=== PATIENT | male | born 1970 | race Caucasian/White ===

== ENCOUNTER → 2018-05-05 | Outpatient (CLI) | payer BC ==
--- NOTE | 2018-05-05 09:46 | Diagnostic Imaging Report ---
PROCEDURE: US Gallbladder. TECHNIQUE: Multiple real-time grayscale images were obtained over the right upper quadrant in various projections. INDICATION: Right upper quadrant abdominal discomfort. FINDINGS: The liver is normal in size at 16.0 cm. There is some generalized hepatic parenchymal heterogeneity but no discrete mass is identified. This may be owing to hepatic steatosis. There is an area of hypoechogenicity in the right lobe of the liver, likely representing fatty sparing. The gallbladder is without stones or sludge. No wall thickening or biliary ductal dilatation is identified. The partially visualized pancreas is unremarkable. The right kidney is unremarkable. No calculi or hydronephrosis is seen. There is no ascites. IMPRESSION: Findings more suggestive of hepatic steatosis. No discrete liver mass or biliary ductal dilatation is identified. There are no findings to suggest cholelithiasis or acute cholecystitis. Dictated by: Dictated on workstation # [id number]
== END ==
LOC: RAD 08:03
PROVIDERS: ATTEND Family Medicine
DX: R10.11 Right upper quadrant pain (principal)
CPT/HCPCS: 76705

== ENCOUNTER 2018-05-27 10:45 | Outpatient (CLI) | payer BC ==
[~2018-05-27] VITALS: Ht 172.7 cm; Wt 90.7 kg
== END 2018-05-27 13:21 | disposition home or self-care (01) ==
LOC: PREOP 10:45
PROVIDERS: ATTEND Internal Medicine
DX: Z01.818 Encounter for other preprocedural examination (principal)

== ENCOUNTER 2018-05-30 07:04 | Day surgery (SDC) | payer BC ==
--- NOTE | 2018-05-09 17:02 | HISTORY AND PHYSICAL ---
DATE OF SERVICE: COLONOSCOPY HISTORY AND PHYSICAL HISTORY OF PRESENT ILLNESS: The patient is a 48-year-old white male, referred by Dr. Dent for screening colonoscopy. He is seemed to be of higher than average risk as he has an uncle diagnosed with colon cancer in his 60s, multiple women in his family have had breast cancer, both mother and sister premenopausal at the age of 48. Father was diagnosed with prostate cancer at the age of 63. He has one other uncle with colon cancer, unknown age, and is not aware of any first-degree relatives with colon cancer. He reports that he feels well. He has had no bowel habit change and has had no melena or bright red blood per rectum. He has had some intermittent episodes of right upper quadrant abdominal pain, nonradiating associated with nausea and aggravated by fatty foods for the past several months. There is reportedly a strong family history for cholecystitis with both of his parents requiring cholecystectomy, per his report. He has not experienced any weight loss. PAST MEDICAL HISTORY: Significant for hemochromatosis, treated with phlebotomy. He has an upcoming hematologic panel including a ferritin level and other iron studies with Dr. Dent. I performed one other colonoscopy on him in 2010, which was normal including the distal 10 cm of terminal ileum. FAMILY HISTORY: As outlined in the H and P. SOCIAL HISTORY: He is with no past smoking history and rare alcohol intake. ADDITIONAL FAMILY HISTORY: His father had prostate cancer at age of 63. He of a stroke at the age of 76 years of age. Mother had atrial fibrillation. He is not aware of any other family history of known hemochromatosis. REVIEW OF SYSTEMS: GI: As noted in the HPI. CARDUIVASCULAR: He denies chest pain, dyspnea on exertion, syncope, presyncope or palpitations. PULMONARY: He has had no cough or shortness of breath and denies any problems with asthma. PHYSICAL EXAMINATION: GENERAL: Reveals a pleasant white male, in no acute distress. VITAL SIGNS: Weight is 209.8 pounds, which is up 26 pounds from his last office visit in 2010; blood pressure 130/80, heart rate 72 and regular. HEENT: Sclerae nonicteric. Oral cavity reveals Mallampati class 2 pharyngeal configuration. NECK: No JVD, adenopathy or bruits. CHEST: Clear to auscultation. CARDIOVASCULAR: Regular rate and rhythm without murmur, S3 or S4. ABDOMEN: Soft, supple without mass, organomegaly or tenderness. EXTREMITIES: No cyanosis, clubbing or edema. ASSESSMENT AND PLAN: 1. The patient was set up for screening colonoscopy on 05/30/2018. Prep instructions and Suprep kit were given and questions were answered. 2. Right upper quadrant abdominal pain with features most suggestive of cholecystitis. If the sonogram is normal, we did discuss acalculous cholecystitis and also discussed the possibility of peptic ulcer disease. I advised to continue to abstain from aspirin and nonsteroidal medication which he usually does not consume. If symptoms persist despite normal sonography, I would consider HIDA scan with CCK and/or my consideration for EGD evaluation if there is no evidence to suggest cholecystitis. I thank you for the referral of this pleasant gentleman. Job ID: [id number] DocumentID: [id number] Dictated Date: 05/01/2018 15:19:54 [employer] Date: 05/01/2018 16:43:33 Dictated By: JEREL VASQUEZ MD MTDD
[~2018-05-30] VITALS: Ht 172.7 cm; Wt 90.7 kg
[~2018-05-30 07:04] MED LIST: D5 LR IV SOLUTION 1,000 ML IV ONE
[2018-05-30] MEDS ORDERED: D5 LR IV SOLUTION 1,000 ML IV STA (07:14)
[2018-05-30] MEDS ORDERED: MIDAZOLAM 2 MG/2 ML (VERSED) VIAL IVP ONE (07:15)
[2018-05-30] MEDS ORDERED: fentaNYL INJECTION 100 MCG/2 ML AMP IVP ONE (07:15)
[2018-05-30] MEDS ORDERED: LIDOCAINE JELLY 2% 6 ML SYRINGE MM PRN (07:15)
[2018-05-30 07:23] VITALS: BP 121/80
[2018-05-30] MEDS ORDERED: LIDOCAINE JELLY 2% 6 ML SYRINGE ONE (07:57)
[2018-05-30] MEDS ORDERED: MIDAZOLAM 2 MG/2 ML (VERSED) VIAL ONE ×2 (07:57)
[2018-05-30] MEDS ORDERED: fentaNYL INJECTION 100 MCG/2 ML AMP ONE (07:57)
--- NOTE | 2018-05-30 08:05 | Pre-Op Note & Conscious Sedat ---
Pre-Operative Progress Note H&P Reviewed The H&P was reviewed, patient examined and no changes noted. Date H&P Reviewed: May 30, 2018 Time H&P Reviewed: 07:45 Conscious Sedation Pre-Proced ASA Score 2 For ASA 3 and 4: Consider anesthesia and medical clearance. Also, for patients with a history of failed moderate sedation consider anesthesia. Airway Lungs Heart ASA score ASA 1: a normal healthy patient ASA 2: a patient with a mild systemic disease (mid diabetes, controlled hypertension, obesity ASA 3: a patient with a severe systemic disease that limits activity (angina , COPD, prior Myocardial infarction) ASA 4: a patient with an incapacitating disease that is a constant threat to life (CHF, renal failure) ASA 5: a moribund patient not expected to survive 24 hrs. (ruptured aneurysm) ASA 6: a declared brain- patient whose organs are being harvested. For emergent operations, add the letter E after the classification Mallampati Classification Grade 2 Sedation Plan Analgesia, Amnesia, Plan communicated to team members, Discussed options with patient/fam, Discussed risks with patient/fam The patient is an appropriate candidate to undergo the planned procedure, sedation, and anesthesia. The patient immediately re-assessed prior to indication. JEREL VASQUEZ MD May 30, 2018 08:05
[2018-05-30 08:30] VITALS: BP 113/79
[2018-05-30 09:00] VITALS: BP 109/74
[2018-05-30 09:20] VITALS: BP 109/74
--- NOTE | 2018-05-30 15:12 | OPERATIVE REPORT ---
DATE OF SERVICE: COLONOSCOPY SUMMARY INDICATION FOR THE PROCEDURE: Screening colonoscopy and a family history for second degree relatives with colon cancer. The patient was placed in the left lateral decubitus position. Prior to undergoing colonoscopy, digital rectal evaluation was performed. Anal sphincter tone was normal and the perianal reflex was intact. The prostate was anodular and nontender/unremarkable to digital inspection. The colonoscope was then inserted into the rectum and under direct visualization advanced to cecum. The cecum was identified by identification of the ileocecal valve and cecal strap. Photographic documentation was obtained. Careful inspection was made as the colonoscope was withdrawn. FINDINGS: There is no evidence for internal or external hemorrhoids. The rectum, sigmoid colon, descending colon, splenic flexure, transverse colon, ascending colon and hepatic flexure were unremarkable. Present in the proximal ascending colon was one moderate sized diverticulum with a fecalith and there was no surrounding inflammation to suggest infection. The ascending colon was otherwise unremarkable. The cecum was normal as well. ASSESSMENT: No evidence for neoplasia was identified on today's study. The patient did have one moderate sized diverticulum with a fecalith noted in the proximal ascending colon with no evidence for sigmoid diverticular disease. There was also no evidence for inflammation around the fecalith. We did discuss signs and symptoms of diverticulitis, which would be slightly atypical either diffuse or right-sided. Overall, risk is lightly relatively low. Considering family history, I would advocate consideration for a repeat screening colonoscopy in 5 years. I thank you for the referral of this pleasant gentleman. Job ID: [id number] DocumentID: [id number] Dictated Date: 05/30/2018 10:48:43 [employer] Date: 05/30/2018 15:12:14 Dictated By: JEREL VASQUEZ MD
== END 2018-05-30 09:20 | disposition home or self-care (01) ==
LOC: ENDO 07:04
PROVIDERS: ATTEND Internal Medicine
DX: Z12.11 Encounter for screening for malignant neoplasm of colon (principal); K57.30 Diverticulosis of large intestine without perforation or abscess without bleeding; E83.119 Hemochromatosis, unspecified; Z80.0 Family history of malignant neoplasm of digestive organs

== ENCOUNTER → 2019-01-05 | Outpatient (CLI) | payer BC ==
--- NOTE | 2019-01-05 16:19 | Diagnostic Imaging Report ---
INDICATION: Medial knee pain. COMPARISON: None. FINDINGS: Three views of the left knee joint demonstrate no acute fracture or dislocation. No focal osseous lesions are seen. No significant joint effusion is seen. The surrounding soft tissue structures are unremarkable. There are no radiopaque foreign bodies. IMPRESSION: 1. No acute fractures or dislocations of the left knee joint. Dictated by: Dictated on workstation # [id number]
== END ==
LOC: RAD 15:17
PROVIDERS: ATTEND Family Medicine
DX: M25.562 Pain in left knee (principal)
CPT/HCPCS: 73562